=== PATIENT | male | born 1980 | race Two or more races ===

== ENCOUNTER 2022-02-05 09:30 | Outpatient (CLI) | payer OTHER, SELFPAY ==
--- NOTE | ~2022-02-05 | XR_ITS ---
XR shoulder LT min 2V DATE: 02/05/2022 09:44 INDICATION: Weight lifting injury 2 months ago. Left shoulder pain TECHNIQUE: 4 views COMPARISON: None FINDINGS: No fracture or dislocation, periosteal reaction or bone destruction or abnormal soft tissue calcification. IMPRESSION: Negative Reviewed, dictated and finalized at location B. OTAPE RECORDING ENGINEER IMPRESSION: Negative
== END 2022-02-05 09:31 ==
PROVIDERS: PCP Family Medicine; Visit Provider Family Medicine
DX: M25.512 Pain in left shoulder (principal)
CPT/HCPCS: 73030

== ENCOUNTER → 2022-02-18 08:05 | Outpatient (CLI) | payer OTHER, SELFPAY ==
--- NOTE | ~2022-02-18 | MR_ITS ---
EXAMINATION: MR shoulder LT wo con DATE: 02/18/2022 08:41 INDICATION: Internal derangement of the left shoulder TECHNIQUE: Magnetic resonance imaging (MRI) of the left shoulder was performed without intravenous co ntrast. Sequences included axial PD-weighted FS FSE, coronal oblique PD-weighted FS FSE, coronal obli que T2-weighted FS FSE, sagittal PD-weighted FS FSE, and sagittal T1-weighted SE. COMPARISON: None. FINDINGS: Coracoacromial arch: The acromion undersurface is flat in morphology (type I). The coracoacromial ligament is normal. Mild to moderate acromioclavicular osteoarthritis. Rotator cuff: Mild tendinopathy of the subscapularis, supraspinatus and infraspinatus tendons without tear. The ter es minor tendon is normal. Normal rotator cuff muscle bulk and signal. Biceps tendon, glenoid labrum and glenohumeral cartilage: Long head of the biceps tendon is normal. Well-defined linear tear at the bone labral interface of th e 8:00-10:00 position of the posterior glenoid labrum with 2 mm para labral cyst at the periphery of the 10:00 position of the labrum. Normal small anterosuperior sublabral foramen. Glenohumeral cartila ge is normal. Fluid: Physiologic amount of fluid in the glenohumeral joint and biceps tendon sheath. No loose osteochondr al bodies. No abnormal fluid signal the subacromial/subdeltoid bursa to suggest bursitis. Bones: Minimal subarticular edema at both sides of the acromioclavicular joint. Bone marrow signal is otherw ise normal with no fracture or pathologic marrow replacing process. IMPRESSION: 1. Tear at the 8:00-10:00 position of the posterior glenoid labrum. 2. Mild subscapularis, supraspinatus and infraspinatus tendinopathy without tear. 3. Mild to moderate acromioclavicular osteoarthritis. Reviewed, dictated and finalized at location L. BASE MARKETING MANAGER IMPRESSION: 1. Tear at the 8:00-10:00 position of the posterior glenoid labrum. 2. Mild subscapularis, supraspinatus and infraspinatus tendinopathy without tea r. 3. Mild to moderate acromioclavicular osteoarthritis.
== END ==
PROVIDERS: PCP Family Medicine; Visit Provider Family Medicine
DX: M24.9 Joint derangement, unspecified (principal); S43.432A Superior glenoid labrum lesion of left shoulder, initial encounter; M19.012 Primary osteoarthritis, left shoulder
CPT/HCPCS: 73221

== ENCOUNTER 2022-04-21 13:52 | Emergency (ER) | payer SELFPAY ==
[2022-04-21 13:57] VITALS: BP 140/76; PULSE 76; RESP 16; TEMP 36.2; O2SAT 97
--- NOTE | 2022-04-21 14:27 | ED.URI ---
HPI - URI/Sore Throat General Chief Complaint: Upper Respiratory Infection Stated Complaint: Cough/Cold Symptoms Source: patient and RN notes reviewed History of Present Illness HPI Narrative: 41-year-old male presents to urgent care with complaints of coughing up green phlegm, congestion, and head pressure x1 month. Patient states he has been taking all ijyv-hpy-loigqek medications and cough solutions without relief. Denies any fevers, chills, shortness of breath, or chest pain. Some parts of this dictation were generated by voice recognition software and may contain typographical and/or grammatical inaccuracies. Related Data Allergies Allergy/AdvReac Type Severity Reaction Status Date / Time Penicillins Allergy Unknown Unknown Verified 04/21/22 14:19 Review of Systems Review of Systems: CONSTITUTIONAL: Denies fever, chills, or sweats. EYES: Denies visual changes, redness, or discharge. ENT: Congestion CARDIOVASCULAR: Denies chest pain, palpitations, or edema. RESPIRATORY: Cough GASTROINTESTINAL: Denies abdominal pain, nausea, vomiting, or diarrhea. GENITOURINARY: Denies dysuria or hematuria. SKIN: Denies rash or itching. MUSCULOSKELETAL: Denies back pain, joint pain, or myalgia. NEUROLOGIC: Denies headache, numbness, or weakness. [facility] Past Medical History Medical History (Updated 04/21/22 @ 14:28 by Danielle Espinal APRN) Tear of left glenoid labrum (~2002) Surgical History Surgical History (Updated 03/18/22 @ 13:00 by Jade Jarrett MA) History of laparoscopic appendectomy Family History Family History Mother Patient's mother is in good health Family history of type 2 diabetes mellitus Sibling Patient's sister is in good health Family history of type 2 diabetes mellitus Father Family history of type 2 diabetes mellitus Social History Social History (Updated 02/10/22 @ 08:58 by Paola Michael MA) Smoking status: Never smoker Second hand tobacco smoke exposure: No Alcohol intake: current Substance use: never Substance use type: does not use Lack of Transportation: No Lack of Food: Never True Current Housing: I Have Housing Concerned About Future Housing: No Difficulty Paying Gas/Electric Bills: No Difficulty Paying for Meds: No Currently Unemployed: No Education: Master's Degree or Higher Difficulty w/ Childcare or Family Care: No Living arrangements: with family Occupation/Education: occupation Gender identity (if verbalized by the patient): Male Sexual Orientation (if Verbalized by the Patient): Straight or Heterosexual Agree to blood products: Yes Comments At the time of my signature, I reviewed and agree with the nursing past medical, surgical, social, and family history. There is no relevant family history pertinent to the patient complaint. Exam Narrative: GENERAL: This is a well-nourished, well-developed patient, in no apparent distress. HEAD: normocephalic, atraumatic. EYES: PERRL. Sclera clear/white. Vision is grossly intact. EARS: External ears normal, auditory canals clear and without drainage, TMs normal without perforation. Hearing grossly intact. NOSE: congestion THROAT: Mucous membranes moist, posterior pharynx clear. NECK: Neck supple, non-tender without lymphadenopathy, masses or thyromegaly. CARDIOVASCULAR: Regular rate and rhythm without murmurs, gallops, or rubs. RESPIRATORY: Clear to auscultation. Breath sounds equal bilaterally. No wheezes, rales, or rhonchi. GASTROINTESTINAL: Abdomen soft, non-tender, nondistended. Bowel sounds are active. No hepato-splenomegaly, or palpable masses. No guarding. SKIN: warm, intact with no suspicious lesions or rash, good texture and turgor. NEURO: awake, alert, and oriented to person, place and time. There were no obvious focal neurologic abnormalities. Course Course Level of Care: Express Care Visit Vital Signs Vital signs: Vital Sig
== END 2022-04-21 14:30 | disposition home or self-care (01) ==
PROVIDERS: Emergency Provider Nurse Practitioner Family
DX: J40 Bronchitis, not specified as acute or chronic (principal); J32.9 Chronic sinusitis, unspecified
CPT/HCPCS: 99213; G0463

== ENCOUNTER 2024-03-20 10:49 | Emergency (ER) | payer BC, SELFPAY ==
--- NOTE | ~2024-03-20 | XR_ITS ---
EXAMINATION: XR foot RT min 3V DATE: 03/20/2024 11:07 INDICATION: Right foot injury. TECHNIQUE: 4 views of right foot were obtained. COMPARISON: None. FINDINGS: Alignment is normal. No fracture. There is mild osteoarthritis of some of the interphalange al joints. There is an enthesophyte of posterior aspect of calcaneal tuberosity. IMPRESSION: 1. No fracture. Reviewed, dictated and finalized at location B. IT CONTROLLER IMPRESSION: 1. No fracture.
[2024-03-20 10:54] VITALS: BP 148/89; PULSE 58; RESP 20; TEMP 36.6; O2SAT 98
--- NOTE | 2024-03-20 10:56 | ED.LOWEXIN ---
HPI - Extremity Injury (Lower) General Chief Complaint: Extremity Injury, Lower Stated Complaint: Right foot injury Time Seen by Provider: 03/20/24 10:56 Source: patient, RN notes reviewed and old records reviewed Mode of arrival: ambulatory Limitations: no limitations History of Present Illness HPI Narrative: 43 year old male presents to [facility] care with complaints of pain and injury to his right foot along top and medial aspect of foot from where a couch was dropped onto his foot on Tuesday while moving it.Patient reports that he has noted pain and swelling to the top of his foot and swelling, Limping gait noted, Patient has been taking Ibuprofen for his discomfort. MD complaint: foot injury (right) Onset (ago): day(s) (3 days ago) Injury: Right: foot Type of Injury: blunt Place: home Severity scale (1-10): 8 Exacerbating factors: weight bearing and movement Treatments prior to arrival: cold therapy and NSAIDS Related Data Home Medications ?Medication ?Instructions ?Recorded ?Confirmed ?Last Taken ?Type No Home Medications 03/08/24 03/08/24 Unknown History Allergies Allergy/AdvReac Type Severity Reaction Status Date / Time Penicillins Allergy Unknown Rash Verified 03/20/24 10:57 Review of Systems Review of Systems: CONSTITUTIONAL: Denies fever, chills, or sweats. EYES: Denies visual changes, redness, or discharge. ENT: Denies rhinorrhea, congestion, sore throat, or otalgia. CARDIOVASCULAR: Denies chest pain, palpitations, or edema. RESPIRATORY: Denies cough or dyspnea. GASTROINTESTINAL: Denies abdominal pain, nausea, vomiting, or diarrhea. GENITOURINARY: Denies dysuria or hematuria. SKIN: Denies rash or itching. MUSCULOSKELETAL: Denies back pain,positive for right foot pain dorsal aspect, or myalgia. NEUROLOGIC: Denies headache, numbness, or weakness. PSYCHIATRIC: Denies anxiety or depression. All systems reviewed & are unremarkable except as noted in HPI and below PMFSH Past Medical History Medical History Bronchitis Tear of left glenoid labrum (~2002) Surgical History Surgical History History of laparoscopic appendectomy Family History Family History Mother Patient's mother is in good health Family history of type 2 diabetes mellitus Sibling Patient's sister is in good health Family history of type 2 diabetes mellitus Father Family history of type 2 diabetes mellitus Social History Social History Smoking status: Never smoker Second hand tobacco smoke exposure: No Alcohol intake: current Substance use: never Substance use type: does not use Lack of Transportation: No Lack of Food: Never True Current Housing: I Have Housing Concerned About Future Housing: No Difficulty Paying Gas/Electric Bills: No Difficulty Paying for Meds: No Currently Unemployed: No Education: Master's Degree or Higher Difficulty w/ Childcare or Family Care: No Living arrangements: with family Occupation/Education: occupation Gender identity (if verbalized by the patient): Male Sexual Orientation (if Verbalized by the Patient): Straight or Heterosexual Agree to blood products: Yes Comments At time of signature, agree with nursing past medical, surgical, social and family history. There is no relevant family history pertinent to the presenting complaint Exam Narrative: GENERAL: Well-appearing, well-nourished, and in no acute distress. HEAD: Normocephalic, atraumatic. EYES: PERRLA and EOMI. ENT: Nares clear, no rhinorrhea or epistaxis. Mucous membranes moist. NECK: Supple. CHEST: Clear to auscultation. No respiratory distress. HEART: Regular rate and rhythm. No murmur heard. Normal peripheral pulses. ABDOMEN: Soft, nontender, nondistended, normal active bowel sounds. EXTREMITIES: Normal range of motion. No acute edema. Pain to the anterior and medial aspect of right foot no bruising or redness noted slight swelling with stated throbbing pain, no obvious deformity, reports no tingling or numbness to right foot, strong pedal pulse present.mobility intact but with discomfort. SKIN: Warm, dry, no rash. NEURO: No focal deficits. Alert and oriented x3. Course Course Emergency Course: Patient is aware of diagnosis, understands and agrees to treatment plan.? Anticipatory guidance given.? Patient agrees to follow-up as directed and is aware of reasons to seek care at the emergency department. Portions of this record may have been created with voice recognition software Level of Care: Express Care Visit Vital Signs Vital signs: Vital Signs Temperature 36.6 C 03/20/24 10:54 Pulse Rate 58 L 03/20/24 10:54 Respiratory Rate 20 03/20/24 10:54 Blood Pressure 148/89 H 03/20/24 10:54 Pulse Oximetry 98 03/20/24 10:54 Oxygen Delivery Room Air 03/20/24 10:54 Temperature 36.6 C 03/20/24 10:54 Pulse Rate 58 L 03/20/24 10:54 Respiratory Rate 20 03/20/24 10:54 Blood Pressure 148/89 H 03/20/24 10:54 Pulse Oximetry 98 03/20/24 10:54 Oxygen Delivery Room Air 03/20/24 10:54 Reviewed MDM - Extremity Injury (Lower) Differential Diagnosis Differential diagnosis: Likely other (foot contusion, blunt trauma right foot, fracture right foot, pain right foot) Medical Records Attestation: I reviewed the patient's medical records. Imaging Data Attestation: I personally reviewed and interpreted this imaging study as follows: My impression: no fracture mild osteoarthritis of some of the interphalangeal joints Radiologist's impression: [address] [place] [id number] XRay Report Signed Patient: Giovanny Sanchez : 1980 MR#: [id number] Age: 43 Acct:[id number] Loc: [facility] ADM Date: 03/20/24Attending Dr: Ordering Physician: Odalis Pickard APRN Date of Service: 03/20/24 Procedure(s): XR foot RT min 3V Accession Number(s): [id number] cc: Odalis Pickard APRN; Emily Vigil DO~ EXAMINATION: XR foot RT min 3V DATE: 03/20/2024 11:07 INDICATION: Right foot injury. TECHNIQUE: 4 views of right foot were obtained. COMPARISON: None. FINDINGS: Alignment is normal. No fracture. There is mild osteoarthritis of some of the interphalangeal joints. There is an enthesophyte of posterior aspect of calcaneal tuberosity. IMPRESSION: 1. No fracture. Reviewed, dictated and finalized at location B. R SALES REP Please be advised this is a medical document. It is intended for wmme-ro-owkn communication. It is written in medical language and may contain unfamiliar abbreviations or verbiage. Medical documents are intended to carry relevant information, facts as evident, and the clinical opinion of the practitioner at the time of the encounter. This report may have been done utilizing a voice recognition system. Attempts have been made to correct errors. However, there may be uncorrected grammatical, spelling, and recognition errors present. The file time of this note does not necessarily represent the time of service. Dictated By: Jose Cruz MD 03/20/24 1108 Signed By: <Electronically signed by Jose Cruz MD in OV> Critical Care Time Critical Care Time Critical Care Time: No Discharge Plan Discharge Clinical Impression: Contusion of foot, right Qualifiers: Encounter type: initial encounter Qualified Code(s): S90.31XA - Contusion of right foot, initial encounter Patient Disposition: Home, Self-Care Condition: Stable Instructions: Antibiotic Form, Contusion in Adults (ED) Additional Instructions: Elastic wrap or orthopedic splint as directed for comfort for the next 5-7 days Tylenol for lesser pain Ibuprofen regularly for the next 2-3 days for the inflammation Follow-up with orthopedic surgeon any further complaints or concerns Follow-up with PCP if further problems or concerns Ice to the area 20-30 minutes 4-6 times a day Elevate above heart If your symptoms persist, change or worsen significantly before you can contact your personal physician then please, without delay, go to the emergency department for further evaluation. Follow-up with PCP in 7-10 days or sooner if needed Follow up with PCP soon in regards to your blood pressure which is elevated above threshold for referral. Blood pressure above 120/80 may indicate pre-hypertension. 148/89 Patient Language: Mohawk Prescriptions: No Action No Home Medications Follow-up/Referrals: Emily Vigil DO [Primary Care Provider] - Time of Disposition: 11:28 Quality [place] Coma Scale Eyes: Open Verbal: Oriented and Alert Motor: Follows Commands [place] Coma Total Score: 15
--- OUTSIDE RECORDS SUMMARY | 2024-03-22 17:34 | XMS_ITS | Referral Summary ---
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 Social History Tobacco Use Types Packs/Day Years Used Date Smoking Tobacco: Never Smokeless Tobacco: Never Alcohol Use Standard Drinks/Week Comments Yes 0 (1 standard drink = 0.6 oz pur e alcohol) Sex and Gender Information Value Date Recorded Sex Assigned at Not on file Legal Sex Male 11:49 AM MANAGER PRACTICE Gender Identity Not on file Sexual Orientation Not on file Last Filed Vital Signs Vital Sign Reading Time Taken Comments Blood Pressure 132/90 07/11/2020 4:49 PM CDT Pulse 80 01/16/2016 1:34 PM MANAGER PRACTICE Temperature - - Respiratory Rate - - Oxygen Saturation - - Inhaled Oxygen Concentration - - Weight 119.7 kg (264 lb) 10/03/2017 3:09 PM CDT Height 180.3 cm (5' 11 ) 10/03/2017 3:09 PM CDT Body Mass Index 36.82 10/03/2017 3:09 PM CDT Plan of Treatment Not on file Insurance [facility] CHOICE PLUS [employer]IG[employer] Care Teams Illuminator Relationship Specialty Start Date End Date Jairon Casillas MD [address] [place] [address] PCP - General Internal Medicine 07/15/20
--- OUTSIDE RECORDS SUMMARY | 2024-03-22 17:34 | XMS_ITS | Clinical Summary ---
Author Organization [facility] Address [address] [place] [address] Phone Care Team Providers Care Manager Of Sustainability Name Role Phone Unavailable Primary Care Provider Unavailabl e Social History Tobacco Use Types Packs/Day Years Used Date Smoking Tobacco: Never Assessed Sex and Gender Information Value Date Recorded Sex Assigned at Not on file Legal Sex Male 12:53 PM CDT Gender Identity Not on file Sexual Orientation Not on file Plan of Treatment Health Maintenance Due Date Last Done Comments DTAP/TDAP/TD VACCINES (1 - Tdap) 2001 HEPATITIS B VACCINES (1 of 3 - 19+ 3-dose series) 2001 INFLUENZA VACCINE (#1) 2023 HPV VACCINES Aged Out No longer eligi ble based on patient's age to complete this topic PNEUMOCOCCAL VACCINE 0-64 YEARS Aged Out No longer eligible based on patient's age to complete this topic Insurance [employer] OPEN ACCESS HMO
--- OUTSIDE RECORDS SUMMARY | 2024-03-22 17:34 | XMS_ITS | Clinical Summary ---
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 Surgical History Surgery Date Site/Laterality Comments APPENDECTOMY Family History Medical History Relation Name Comments Diabetes Other Hypertension Other Relation Name Status Comments Other Social History Tobacco Use Types Packs/Day Years Used Date Smoking Tobacco: Never Smokeless Tobacco: Never Alcohol Use Standard Drinks/Week Comments Yes 0 (1 standard drink = 0.6 oz pur e alcohol) Sex and Gender Information Value Date Recorded Sex Assigned at Not on file Legal Sex Male 11:49 AM CNC OPERATOR PROGRAMMER Gender Identity Not on file Sexual Orientation Not on file Obstetrics History Last Filed Vital Signs Vital Sign Reading Time Taken Comments Blood Pressure 132/90 07/11/2020 4:49 PM CDT Pulse 80 01/16/2016 1:34 PM CNC OPERATOR PROGRAMMER Temperature - - Respiratory Rate - - Oxygen Saturation - - Inhaled Oxygen Concentration - - Weight 119.7 kg (264 lb) 10/03/2017 3:09 PM CDT Height 180.3 cm (5' 11 ) 10/03/2017 3:09 PM CDT Body Mass Index 36.82 10/03/2017 3:09 PM CDT Plan of Treatment Not on file Insurance [facility] CHOICE PLUS [employer]IGNA Care Teams Noodle Maker Relationship Specialty Start Date End Date Jairon Casillas MD [address] [place] [address] PCP - General Internal Medicine 07/15/20
== END 2024-03-20 11:36 | disposition home or self-care (01) ==
PROVIDERS: Emergency Provider Registered Nurse; PCP Family Medicine
DX: S90.31XA Contusion of right foot, initial encounter (principal); W20.8XXA Other cause of strike by thrown, projected or falling object, initial encounter
CPT/HCPCS: 73630; 99213; G0463

== ENCOUNTER 2024-04-24 08:23 | Outpatient (CLI) | payer BC, SELFPAY ==
--- OUTSIDE RECORDS SUMMARY | 2024-04-24 08:39 | XMS_ITS | Referral Summary ---
Author Organization [facility] Address [address] [place] [id number] Care Team Providers Care Fall Intern Name Role Phone Jairon Casillas MD Primary Care Provider [phone] Allergies Active Allergy Reactions Criticality Noted Date Comments Penicillins Unknown 10/03/2017 Medications yzdvgfpd-jhgz-olmn ous gluconat (CENTRUM) 0.6 mg iron/mL liquid [...] on file Legal Sex Male 11:49 AM RESIDENTIAL CONCIERGE Gender Identity Not on file Sexual Orientation Not on file Last Filed Vital Signs Vital Sign Reading Time Taken Comments Blood Pressure 132/90 07/11/2020 4:49 PM CDT Pulse 80 01/16/2016 1:34 PM RESIDENTIAL CONCIERGE Temperature - - Respiratory Rate - - Oxygen Saturation - - Inhaled Oxygen Concentration - - Weight 119.7 kg (264 lb) 10/03/2017 3:09 PM CDT Height 180.3 cm (5' 11) 10/03/2017 3:09 PM CDT Body Mass Index 36.82 10/03/2017 3:09 PM CDT Plan of Treatment Not on file Insurance [facility] CHOICE PLUS [facility] HMO/PPO Address: [address] [address] [place] [address] [employer] Care Teams Fall Intern Relationship Specialty Start Date End Date Jairon Casillas MD [address] [place] [address] PCP - General Internal Medicine 07/15/20
--- OUTSIDE RECORDS SUMMARY | 2024-04-24 08:39 | XMS_ITS | Clinical Summary ---
Author Organization [facility] Address [address] [place] [address] Phone Care Team Providers Care Medical Representative Name Role Phone Unavailable Primary Care Provider [...] patient's age to complete this topic Insurance [facility] OPEN ACCESS HMO
--- OUTSIDE RECORDS SUMMARY | 2024-04-24 08:39 | XMS_ITS | Clinical Summary ---
Author Organization [facility] Address [address] [place] [id number] Care Team Providers Care Automotive Title Clerk Name Role Phone Jairon Casillas MD Primary Care Provider [phone] Allergies Active Allergy Reactions Criticality Noted Date Comments Penicillins Unknown 10/03/2017 Medications rkumubps-xrgl-awpy ous gluconat (CENTRUM) 0.6 mg iron/mL liquid [...] on file Legal Sex Male 11:49 AM MORNING BABYSITTER Gender Identity Not on file Sexual Orientation Not on file Obstetrics History Last Filed Vital Signs Vital Sign Reading Time Taken Comments Blood Pressure 132/90 07/11/2020 4:49 PM CDT Pulse 80 01/16/2016 1:34 PM MORNING BABYSITTER Temperature - - Respiratory Rate - - Oxygen Saturation - - Inhaled Oxygen Concentration - - Weight 119.7 kg (264 lb) 10/03/2017 3:09 PM CDT Height 180.3 cm (5' 11) 10/03/2017 3:09 PM CDT Body Mass Index 36.82 10/03/2017 3:09 PM CDT Plan of Treatment Not on file Insurance [facility] CHOICE PLUS C[employer] Care Teams Automotive Title Clerk Relationship Specialty Start Date End Date Jairon Casillas MD [address] [place] [address] PCP - General Internal Medicine 07/15/20
[2024-04-24 10:08] LABS: Basophils Absolute Auto 0.1 K/mm3 (0.0-0.1); Basophils Percent Auto 0.9 % (0.2-1.2); Eosinophils Absolute Auto 0.2 K/mm3 (0-0.3); Eosinophils Percent Auto 2.9 % (0-4.4); Hematocrit 47.4 % (42.0-52.0); Hemoglobin 15.6 g/dL (14.0-18.0); Immature Granulocyte Absolute 0.02 K/mm3 (0.00-0.031); Immature Granulocyte Percent A 0.4 % (0-0.5); Lymphocytes Absolute Auto 2.35 K/mm3 (0.9-3.2); Lymphocytes Percent Auto 43.1 % (18.3-44.2); Mean Corpuscular HGB Conc 32.9 g/dl (32-36); Mean Corpuscular Hemoglobin 30.3 pg (26-34); Mean Platelet Volume 10.3 fl (7.4-10.4); Monocytes Absolute Auto 0.5 K/mm3 (0.1-0.6); Monocytes Percent Auto 8.8 % (2.6-8.5); Neutrophils Absolute Auto 2.4 K/mm3 (1.3-6.7); Neutrophils Percent Auto 43.9 % (45.5-73.1); Platelet Count Result 248 k/mm3 (150-375); Red Blood Count 5.15 M/mm3 (4.6-6.20); Red Cell Distribution Width 11.9 % (11.5-14.5); White Blood Count 5.5 K/mm3 (4.5-10.0)
[2024-04-24 10:28] LABS: Alanine Aminotransferase 32 U/L (6-50); Albumin Level 4.6 g/dL (3.5-5.1); Alkaline Phosphatase 63 U/L (38-126); Anion Gap 9 mmol/L (4-12); Aspartate Amino Transferase 60 U/L (17-59); Bilirubin,Total 0.8 mg/dL (0.2-1.3); Blood Urea Nitrogen 18 mg/dL (9-20); Calcium 9.3 mg/dL (8.4-10.2); Carbon Dioxide 28 mmol/L (22-30); Chloride 103 mmol/L (98-107); Cholesterol 225 mg/dL (0-200); Estimated Glomerular Filt Rate > 60; Glucose 105 mg/dL (65-110); HDL Direct 51 mg/dL; Potassium 4.4 mmol/L (3.4-5.0); Sodium 140 mmol/L (137-145); Triglycerides 153 mg/dL (<150)
[2024-04-24 10:39] LABS: LDL Cholesterol Direct 129 mg/dL
[2024-04-24 16:54] LABS: Hemoglobin A1C 5.6 % (<5.7)
== END 2024-04-24 08:24 | disposition home or self-care (01) ==
LOC: ANHGOSHLAB 08:24
PROVIDERS: PCP Family Medicine; Visit Provider Family Medicine
DX: Z13.228 Encounter for screening for other metabolic disorders (principal); Z13.220 Encounter for screening for lipoid disorders; Z13.29 Encounter for screening for other suspected endocrine disorder; R07.9 Chest pain, unspecified; R00.2 Palpitations; E78.2 Mixed hyperlipidemia; R53.83 Other fatigue; Z83.438 Family history of other disorder of lipoprotein metabolism and other lipidemia
CPT/HCPCS: 36415; 80053; 80061; 83036; 84443; 85025